=== PATIENT | female | born 1995 | race Two or more races ===

== ENCOUNTER 2021-07-03 22:15 | Inpatient (IN) | payer MEDICAID ==
[~2021-07-03] VITALS: Ht 157.5 cm; Wt 82.0 kg
[2021-07-03] MEDS ORDERED: NEWBORN KIT ONE (22:32)
[2021-07-03] MEDS ORDERED: OXYTOCIN 30U/ 0.9% NaCL 500ML 500 ML ONE (22:32)
[2021-07-03] MEDS ORDERED: D5%-LACTATED RINGERS 1,000 ML IV SCH (23:00)
[2021-07-03] MEDS ORDERED: ONDANSETRON 2MG/ML, 2ML IVPush PRN (23:00)
[2021-07-03] MEDS ORDERED: FENTANYL PF 100 MCG/2ML IVPush PRN (23:00)
[2021-07-03] MEDS ORDERED: OXYTOCIN 30U/ 0.9% NaCL 500ML 500 ML IV ONE (23:00)
[2021-07-03] MEDS ORDERED: TERBUTALINE 1 MG/ML, 1ML SQ PRN (23:00)
[2021-07-03] MEDS ORDERED: FENTANYL PF 100 MCG/2ML IV PRN (23:00)
[2021-07-03] MEDS ORDERED: TERBUTALINE 1 MG/ML, 1ML IVPush PRN (23:00)
[2021-07-03] MEDS ORDERED: LACTATED RINGERS 1,000 ML IV SCH (23:00)
[2021-07-03] MEDS ORDERED: CALCIUM CARBONATE 500 MG TAB.CHEW PO PRN (23:00)
[2021-07-03 23:24] LABS: BASOPHILS % (AUTO) 0 % (0-1); EOSINOPHILS % (AUTO) 1 % (1-7); LYMPHOCYTES % (AUTO) 20 % (22-44); MEAN CORPUSCULAR HEMOGLOBIN 32.6 pg (27.0-34.8); MEAN CORPUSCULAR HGB CONC 34.7 g/dL (32.4-35.8); MEAN PLATELET VOLUME 9.4 fL (7.4-10.4); MONOCYTES % (AUTO) 5 % (2-9); NEUTROPHILS % (AUTO) 75 % (42-75); PLATELET COUNT 210 x10^3/uL (130-400); RED BLOOD COUNT 4.22 x10^6/uL (3.82-5.3); RED CELL DISTRIBUTION WIDTH 12.6 % (9.6-15.2)
[2021-07-04] MEDS ORDERED: FENTANYL/BUPIV./NS/PF 250 ML EPIDCONT ONE (04:18)
[2021-07-04] MEDS ORDERED: BUPIVACAINE 0.25% ONE (04:18)
[2021-07-04] MEDS ORDERED: LACTATED RINGERS 1,000 ML IVBOLUS PRN (05:00)
[2021-07-04] MEDS ORDERED: LACTATED RINGERS 1,000 ML IV SCH (05:00)
[2021-07-04] MEDS ORDERED: EPHEDRINE 50 MG/ML, 1ML IVPush PRN (05:00)
[2021-07-04] MEDS ORDERED: FENTANYL/BUPIV./NS/PF 250 ML EPIDCONT SCH (05:00)
[2021-07-04] MEDS ORDERED: OXYTOCIN 30U/ 0.9% NaCL 500ML 500 ML IV PRN (18:00)
[2021-07-04] MEDS ORDERED: SODIUM CITRATE/CITRIC ACID 15 ML UDC ONE (18:35)
[2021-07-04] MEDS ORDERED: METOCLOPRAMIDE 5 MG/ML, 2ML ONE (18:35)
[2021-07-05] MEDS ORDERED: BUPIVACAINE 0.25% ONE (02:28)
[2021-07-05] MEDS ORDERED: DOCUSATE 100 MG CAPSULE PO PRN (04:00)
[2021-07-05] MEDS ORDERED: MISOPROSTOL 200 MCG TABLET PR PRN (04:00)
[2021-07-05] MEDS ORDERED: CALCIUM CARBONATE 500 MG TAB.CHEW PO PRN (04:00)
[2021-07-05] MEDS ORDERED: OXYTOCIN 30U/ 0.9% NaCL 500ML 500 ML IV SCH (04:00)
[2021-07-05] MEDS ORDERED: ONDANSETRON 2MG/ML, 2ML IV PRN (04:00)
[2021-07-05] MEDS ORDERED: HYDROcodone/APAP 5/325 TABLET PO PRN (04:00)
[2021-07-05] MEDS ORDERED: SIMETHICONE 80 MG CHEW TAB PO PRN (04:00)
[2021-07-05] MEDS: OXYTOCIN 30U/ 0.9% NaCL 500ML 500 ML IV SCH ×2 (04:00→14:00)
[2021-07-05] MEDS ORDERED: ACETAMINOPHEN 325 MG TABLET PO PRN ×2 (04:00)
[2021-07-05] MEDS: IBUPROFEN 600 MG TABLET PO PRN ×3 (05:53→19:47)
[2021-07-05 06:00] VITALS: BP 126/81
[2021-07-05 06:55] VITALS: BP 122/77
[2021-07-05] MEDS: PRENATAL VIT/IRON/FA 1 EACH TABLET PO SCH (09:00)
[2021-07-05] MEDS: HYDROcodone/APAP 5/325 TABLET PO PRN ×3 (09:00→19:47)
[2021-07-05 11:12] VITALS: BP 118/74
[2021-07-05 11:40] LABS: MEAN CORPUSCULAR HGB CONC 33.8 g/dL (32.4-35.8); MEAN PLATELET VOLUME 9.2 fL (7.4-10.4); PLATELET COUNT 181 x10^3/uL (130-400); RED BLOOD COUNT 3.91 x10^6/uL (3.82-5.3); RED CELL DISTRIBUTION WIDTH 12.7 % (9.6-15.2)
[2021-07-05 12:15] LABS: BAND#(MANUAL) 2.15 x10^3/uL; BANDS%(MANUAL) 11 % (0-7); LYMPH#(MANUAL) 2.15 x10^3/uL (1-3.4); LYMPHS% (MANUAL) 11 % (22-44); MONOS#(MANUAL) 0.78 x10^3/uL (0.3-2.7); MONOS% (MANUAL) 4 % (2-9); SEG#(MANUAL) 14.43 x10^3/uL (1.8-6.8); SEGS% (MANUAL) 74 % (42-75)
[2021-07-05 12:16] LABS: <PLATELET ESTIMATE> ADEQUATE; <PLT MORPHOLOGY> NORMAL PLT MORPH; <RBC MORPHOLOGY> NORMAL
[2021-07-05 16:50] VITALS: BP 103/66
[2021-07-05 20:00] VITALS: BP_SYST 126; BP_SYST 128; BP_DIAS 69; BP_DIAS 83
[2021-07-05 23:47] VITALS: BP 133/85
[2021-07-06] MEDS: HYDROcodone/APAP 5/325 TABLET PO PRN (01:31)
[2021-07-06] MEDS: OXYTOCIN 30U/ 0.9% NaCL 500ML 500 ML IV SCH ×2 (03:01)
[2021-07-06 05:00] VITALS: BP 107/73
[2021-07-06] MEDS: IBUPROFEN 600 MG TABLET PO PRN ×2 (05:02→12:26)
[2021-07-06 07:30] VITALS: BP 135/86
[2021-07-06] MEDS: PRENATAL VIT/IRON/FA 1 EACH TABLET PO SCH (09:00)
== END 2021-07-06 13:55 | disposition home or self-care (01) | DRG 807 ==
LOC: LDOP 22:15 → LDIP 22:38 → 2NW 07-05 05:54 → 2NE 07-05 07:45 → 2NW 07-05 12:40
PROVIDERS: ADMIT Obstetrics & Gynecology; ATTEND Obstetrics & Gynecology
PROC: 10E0XZZ Delivery of Products of Conception, External Approach (ICD-10-PCS; principal; 2021-07-05)
PROC: 0KQM0ZZ Repair Perineum Muscle, Open Approach (ICD-10-PCS; 2021-07-05)
PROC: 3E033VJ Introduction of Other Hormone into Peripheral Vein, Percutaneous Approach (ICD-10-PCS; 2021-07-05)
PROC: 3E0R3BZ Introduction of Anesthetic Agent into Spinal Canal, Percutaneous Approach (ICD-10-PCS; 2021-07-05)
PROC: 00HU33Z Insertion of Infusion Device into Spinal Canal, Percutaneous Approach (ICD-10-PCS; 2021-07-05)
DX: O63.1 Prolonged second stage (of labor) (principal); Z37.0 Single live birth; Z20.822 Contact with and (suspected) exposure to COVID-19; O70.1 Second degree perineal laceration during delivery; O69.81X0 Labor and delivery complicated by cord around neck, without compression, not applicable or unspecified; Z3A.37 37 weeks gestation of pregnancy
CPT/HCPCS: 36415; 87806; J7121; 85025; 86592; 86900; 87340; 87635; G0378; G0475; J2590; J7120